=== PATIENT | male | born 1940 | race Caucasian/White ===

== ENCOUNTER 2022-12-02 22:49 | Emergency (ER) | payer OTHER, SELFPAY ==
--- NOTE | 2022-12-02 22:55 | DI.RAD.S_ITS ---
PROCEDURE: XR CHEST 1V INDICATIONS: chest pain TECHNIQUE: One view of the chest was acquired. COMPARISON: None. FINDINGS: Surgical changes and devices: There are postsurgical changes in the mediastinum with multiple median sternotomy wires. Lungs and pleura: There is a small left pleural effusion with left basilar opacities consistent with consolidation or atelectasis. Mediastinum: Mediastinal contours appear normal. Heart size is normal. Bones and chest wall: No suspicious bony lesions. Overlying soft tissues appear unremarkable. IMPRESSION: 1. Small left pleural effusion with left basilar atelectasis or consolidation. Dictated by: Carlos Connelly M.D. on 12/03/2022 at 0:01 Approved by: Carlos Connelly M.D. on 12/03/2022 at 0:01
[2022-12-02 22:59] VITALS: PULSE 61; RESP 12; O2SAT 99
[2022-12-02 23:00] VITALS: PULSE 63; RESP 20; O2SAT 100
[2022-12-02 23:02] VITALS: BP 138/62; PULSE 62; RESP 18; O2SAT 100
[2022-12-02 23:04] VITALS: BP 138/62; PULSE 62; RESP 16; TEMP 36.2; O2SAT 99
[2022-12-02 23:19] LABS: Basophils Absolute Auto 100 /uL (0-100); Basophils Percent Auto 0.7 % (0-2); Eosinophils Absolute Auto 100 /uL (0-450); Eosinophils Percent Auto 1.4 % (2-4); Hematocrit 28.9 % (41-53); Hemoglobin 9.5 g/dL (13.5-17.5); Lymphocytes Absolute Auto 900 /uL (1100-4500); Lymphocytes Percent Auto 11.7 % (25-40); Mean Corpuscular HGB Conc 32.8 % (30-36); Mean Corpuscular Hemoglobin 27.4 PG (26-34); Mean Corpuscular Volume 83.7 fL (80-100); Monocytes Absolute Auto 700 /uL (0-900); Monocytes Percent Auto 9.2 % (3-14); Neutrophils Absolute Auto 6100 /uL (1500-7000); Platelet Count 253 X10^3/uL (150-400); Red Blood Cell Count 3.45 X10^6/uL (4.5-5.9); White Blood Cell Count 7.9 X10^3/uL (4.5-11.0)
[2022-12-02 23:20] LABS: Add Manual Diff / Slide Review SLIDE REVIEW
[2022-12-02 23:21] LABS: INR 1.2 (0.9-1.3); Prothrombin Time 14.2 SECONDS (10.1-12.7)
[2022-12-02 23:23] LABS: D Dimer 1057 ng/ml (<500)
[2022-12-02 23:24] LABS: Alanine Aminotransferase 18 IU/L (<50); Albumin 3.8 g/dL (3.5-5.0); Albumin Globulin Ratio 1.1 (1.0-2.8); Alkaline Phosphatase 111 U/L (38-126); Aspartate Aminotransferase 21 IU/L (17-59); BUN Creatinine Ratio 20.7 (6-22); Bilirubin Total 0.3 mg/dL (0.2-1.3); Blood Urea Nitrogen 30 mg/dL (9-20); Calcium 9.5 mg/dL (8.4-10.2); Carbon Dioxide 27 mmol/L (22-32); Chloride 102 mmol/L (98-107); Creatine Kinase 62 U/L (55-170); Estimated Glomerular Filt Rate 48 mL/min (>60); Globulin 3.5 g/dL (1.7-4.1); Glucose 175 mg/dL (80-110); HEMOLYSIS < 15 (0-50); Lipase 94 U/L (23-300); Potassium 4.5 mmol/L (3.4-5.1); Sodium 137 mmol/L (137-145); Total Protein 7.3 g/dL (6.3-8.2)
[2022-12-02 23:30] VITALS: BP 148/67; PULSE 61; O2SAT 100
[2022-12-02 23:35] LABS: Troponin I < 0.012 ng/mL (0.01-0.034)
[2022-12-02 23:40] LABS: Procalcitonin 0.08 ng/mL (<0.5)
[2022-12-03] VITALS (9 sets, daily range): BP systolic 120–171; BP diastolic 57–78; PULSE 55–77; RESP 14–18; O2SAT 95–98
[2022-12-03 00:06] LABS: NT-proBNP (BNP-Adult 18+) 495 pg/mL (<450)
--- NOTE | 2022-12-03 01:15 | ED_ITS ---
HPI - Chest Pain General Chief Complaint: Chest Pain Stated Complaint: Chest Pain Time Seen by Provider: 12/02/22 22:55 Source: patient and EMS Mode of arrival: EMS Limitations: no limitations History of Present Illness HPI narrative: 82-year-old male former smoker with history coronary artery disease, AFib, hypertension hyperlipidemia on Eliquis presents with a chief complaint of feeling some palpitations and a bit winded with some left-sided chest pain that started yesterday. He states that his pain had been persistent and without obvious provocation or palliation. He denies any radiation of his pain. He denies associated symptoms such as dizziness, weakness or lightheadedness. He denies any shortness of breath or cough. He denies nausea, vomiting or diarrhea. He denies any change in medication or missed doses. He is had no fever or chills. He is not currently having any symptoms Related Data Previous Rx's Medication Instructions Recorded apixaban 5 mg tablet (Eliquis) 5 mg PO BID #60 tabs 12/03/22 Allergies Allergy/AdvReac Type Severity Reaction Status Date / Time No Known Drug Allergies Allergy Verified 12/06/22 17:04 Review of Systems Review of Systems Narrative: GENERAL: Denies chills, fatigue, malaise, fever, sweats. HEENT: Denies sinus pain, ear pain, sore throat, difficulty swallowing, dizziness. RESPIRATORY: Denies dyspnea, cough, wheezing, hemoptysis, sputum. CARDIOVASCULAR: See HPI GASTROINTESTINAL: Denies nausea, vomiting, abdominal pain, diarrhea, constipation, melena. : Denies dysuria, frequency, incontinence, hematuria, urinary retention. MUSCULOSKELETAL: denies weakness, joint pain, or bony pain SKIN: Denies rash, skin lesions, or other NEUROLOGIC: Denies weakness, headache, numbness, change in speech, confusion, seizures, incoordination. PSYCHIATRIC: No concerning psychosocial issues. 12 point review of systems is negative except for those stated above Patient History Social History Smoking Status: Former smoker Smoking Status: Former smoker alcohol intake frequency: a few times a month Substance Use Type: does not use Exam Narrative Exam Narrative: GENERAL: [82] year old patient appears stated age. Well-developed patient, in mild distress. HEAD: Atraumatic. Normocephalic. EYES: Pupils equal round and reactive. Extraocular motions intact. No scleral icterus. No injection or drainage. ENT: Nose without bleeding, purulent drainage. Throat without erythema, tonsillar hypertrophy or exudate. Airway patent. NECK: Trachea midline. Non tender CARDIOVASCULAR: Irregular rate and rhythm without murmurs, gallops, or rubs. RESPIRATORY: Clear to auscultation. Breath sounds equal bilaterally. No wheezes, rales, or rhonchi. GASTROINTESTINAL: Abdomen soft, non-tender, nondistended. EXTREMITIES: No edema or joint tenderness. BACK: Nontender without deformity or crepitance. No flank tenderness. NEURO: AOx3. SKIN: No rash or erythema of visible areas Initial Vital Signs Initial Vital Signs: Vital Signs Pulse Rate 61 12/02/22 22:59 Respiratory Rate 12 12/02/22 22:59 Pulse Oximetry 99 12/02/22 22:59 Scores HEART Score Heart Score history: Slightly Suspicious Heart Score EKG: Normal Heart Score Age: > or = 65 years old Heart Score risk factors: 1-2 risk factors Heart Score troponin: < or = to normal limit Heart Score Total: 3 Course Orders Ordered: Discontinued Medications Sodium Chloride (Normal Saline 0.9%) 1,000 mls @ 150 mls/hr IV CONT SHAGGY Last Admin: 12/03/22 03:08 Dose: Not Given Documented By: BS Vital Signs Vital signs: Vital Signs - 8 hr 12/02/22 23:04 Temperature 97.2 F L Pulse Rate 62 Respiratory Rate 16 Blood Pressure 138/62 Pulse Oximetry 99 Oxygen Delivery Method Room Air MDM - Chest Pain Lab Data 12/02/22 23:04 12/02/22 23:04 Labs: Lab Results 12/02/22 12/02/22 12/02/22 Range/Units 23:04 23:04 23:04 WBC 7.9 (4.5-11.0) X10^3/uL RBC 3.45 L (4.5-5.9) X10^6/uL Hgb 9.5 L (13.5-17.5) g/dL Hct 28.9 L (41-53) % MCV 83.7 (80-100) fL MCH 27.4 (26-34) PG MCHC 32.8 (30-36) % RDW 21.0 H (11.6-14.8) % Plt Count 253 (150-400) X10^3/uL Neut % (Auto) 77.0 H (50-75) % Lymph % (Auto) 11.7 L (25-40) % [place] % (Auto) 9.2 (3-14) % Eos % (Auto) 1.4 L (2-4) % Baso % (Auto) 0.7 (0-2) % Neut # (Auto) 6100 (9211-3750) /uL Lymph # (Auto) 900 L (3225-6979) /uL [place] # (Auto) 700 (0-900) /uL Eos # (Auto) 100 (0-450) /uL Baso # (Auto) 100 (0-100) /uL RBC Morphology See below Anisocytosis 3+ H Ovalocytes 1+ H PT 14.2 H (10.1-12.7) SECONDS INR 1.2 (0.9-1.3) D-Dimer 1057 H (<500) ng/ml Sodium 137 (137-145) mmol/L Potassium 4.5 (3.4-5.1) mmol/L Chloride 102 (98-107) mmol/L Carbon Dioxide 27 (22-32) mmol/L BUN 30 H (9-20) mg/dL Creatinine 1.45 H (0.66-1.25) mg/dL Estimated GFR 48 L (>60) mL/min BUN/Creatinine Ratio 20.7 (6-22) Glucose 175 H (80-110) mg/dL Calcium 9.5 (8.4-10.2) mg/dL Total Bilirubin 0.3 (0.2-1.3) mg/dL AST 21 (17-59) IU/L ALT 18 (<50) IU/L Alkaline Phosphatase 111 (38-126) U/L Total Creatine Kinase 62 (55-170) U/L CK-MB (CK-2) TNP CK-MB (CK-2) Rel Index TNP Troponin I < 0.012 (0.01-0.034) ng/mL NT-Pro-B Natriuret Pep (<450) pg/mL Total Protein 7.3 (6.3-8.2) g/dL Albumin 3.8 (3.5-5.0) g/dL Globulin 3.5 (1.7-4.1) g/dL Albumin/Globulin Ratio 1.1 (1.0-2.8) Lipase 94 (23-300) U/L Procalcitonin 0.08 (<0.5) ng/mL 12/02/22 12/03/22 Range/Units 23:04 00:57 WBC (4.5-11.0) X10^3/uL RBC (4.5-5.9) X10^6/uL Hgb (13.5-17.5) g/dL Hct (41-53) % MCV (80-100) fL MCH (26-34) PG MCHC (30-36) % RDW (11.6-14.8) % Plt Count (150-400) X10^3/uL Neut % (Auto) (50-75) % Lymph % (Auto) (25-40) % [place] % (Auto) (3-14) % Eos % (Auto) (2-4) % Baso % (Auto) (0-2) % Neut # (Auto) (9828-6469) /uL Lymph # (Auto) (3912-9108) /uL [place] # (Auto) (0-900) /uL Eos # (Auto) (0-450) /uL Baso # (Auto) (0-100) /uL RBC Morphology Anisocytosis Ovalocytes PT (10.1-12.7) SECONDS INR (0.9-1.3) D-Dimer (<500) ng/ml Sodium (137-145) mmol/L Potassium (3.4-5.1) mmol/L Chloride (98-107) mmol/L Carbon Dioxide (22-32) mmol/L BUN (9-20) mg/dL Creatinine (0.66-1.25) mg/dL Estimated GFR (>60) mL/min BUN/Creatinine Ratio (6-22) Glucose (80-110) mg/dL Calcium (8.4-10.2) mg/dL Total Bilirubin (0.2-1.3) mg/dL AST (17-59) IU/L ALT (<50) IU/L Alkaline Phosphatase (38-126) U/L Total Creatine Kinase 54 L (55-170) U/L CK-MB (CK-2) TNP CK-MB (CK-2) Rel Index TNP Troponin I < 0.012 (0.01-0.034) ng/mL NT-Pro-B Natriuret Pep 495 H (<450) pg/mL Total Protein (6.3-8.2) g/dL Albumin (3.5-5.0) g/dL Globulin (1.7-4.1) g/dL Albumin/Globulin Ratio (1.0-2.8) Lipase (23-300) U/L Procalcitonin (<0.5) ng/mL MDM Narrative Medical decision making narrative: CC: 82-year-old male with left-sided chest pain that started yesterday Complicating co-morbidities: Age, anticoagulation Data collected from: Patient Medical records reviewed: Prior notes reviewed in our EMR Differential considered, but not limited to: Cardiac ischemia, pulmonary embolism, pneumonia, musculoskeletal versus other Exam documented above, pertinent findings include: Lungs clear to auscultation bilaterally, no significant arrhythmia or tachycardia, no reproducible pain Lab Test results independently reviewed as above. Pertinent findings: Independently reviewed EKG as above Imaging studies independently reviewed: Atelectasis, no pulmonary embolism Scores Used: Heart MIPS Elements: No MIPS elements involved Discussion: Patient with reassuring history and physical exam, no occlusive findings or ischemic elements to EKG. No white count or true left shift. D- dimer is above age corrected cutoff for CT angiogram and pursuit of PE as diagnosis, CT angiogram ordered and thankfully absent of any pulmonary embolism. Troponin x2 is negative. Patient has no cough, no fever, no abnormal lung sounds on exam and procalcitonin is negative. For this reason the abnormal findings on imaging suggestive of atelectasis versus infiltrate or more likely atelectasis. Disposition: see below, along with detailed discharge instructions that have been reviewed with patient as well as indications for ED re-evaluation and additional outpatient follow up Discharge Plan Departure Patient Disposition: Home Clinical Impression: Atypical chest pain, Heart palpitations Instructions: DI for Atypical Chest Pain Activity Restrictions/Additional Instructions: *You have been diagnosed with [atypical chest pain. As we discussed your history, physical exam, labs and CT scan are very reassuring ] *What to do: *Please continue to take your regular medications as directed. [ ] New medication prescriptions sent to your pharmacy: [ ] [ ] New medication written as a paper prescription [ x] No new medications given *Please follow up with your primary care provider in 2-3 days, call for an appointment. Let them know you were seen in the Emergency Department and that we ask that you be seen in follow up. We will electronically transmit a record of today's note if your PCP is in our system *If you do not have a primary care provider please contact the [facility] Resource line at [phone]. They will ask some questions about your medical history and help get you set up with a doctor in the community. *Return to Emergency Department if you should have any new, worsening or concerning symptoms, such as [fever greater than 101 F, shaking chills, worsening pain, persistent vomiting or other bothersome symptoms] Prescriptions: New Eliquis 5 mg tablet 5 mg PO BID Qty: 60 0RF Stand Alone Forms: Patient Portal/API
[2022-12-03 01:17] LABS: Creatine Kinase 54 U/L (55-170)
[2022-12-03 01:30] LABS: Troponin I < 0.012 ng/mL (0.01-0.034)
[2022-12-03 01:37] LABS: Anisocytosis 3+; Ovalocytes 1+
--- NOTE | 2022-12-03 01:54 | DI.CT.S_ITS ---
PROCEDURE: CT ANGIO CHEST PE PROTOCOL INDICATIONS: Chest pain, critical Dimer, recent travel TECHNIQUE: After the administration of intravenous contrast, 2 mm thick sections acquired from the pulmonary apices to the posterior costophrenic angles. 3-dimensional maximum intensity projection (MIP) coronal and sagittal reformats were then acquired through the thorax. For radiation dose reduction, the following was used: automated exposure control, adjustment of mA and/or kV according to patient size. COMPARISON: [place], [place], PET NECK TO MID THIGH, 11/14/2022, 10:44. FINDINGS: Image quality: Good Pulmonary arteries: Pulmonary arteries are normal in size, and demonstrate no intraluminal filling defects to suggest central pulmonary embolism. Lungs and pleura: Nodular opacity at the left major fissure and left lower lobe, unchanged. Moderate-sized left pleural effusion, unchanged. No pneumothorax. Central and peripheral airways are patent. Mediastinum: Post median sternotomy and CABG. Heart size is normal, without pericardial effusion. No mediastinal or hilar adenopathy. Right inferior pericardiac calcified lymph node. Thoracic aorta is normal in caliber and enhancement. No conspicuous esophageal mass, with attention to the area of FDG avidity at the distal esophagus seen on recent PET/CT. No hiatal hernia. Bones and chest wall: No suspicious bony lesions. Remote left-sided rib fracture. Mild compression fracture at T7. Right thyroid nodule measuring approximately 1.4 cm. Calcification noted. No axillary or supraclavicular adenopathy. Gynecomastia. Abdomen: Visualized upper abdominal solid organs appear normal in the early arterial phase of enhancement. IMPRESSION: 1. No pulmonary embolism. 2. Moderate left pleural effusion, unchanged. 3. Nodular opacity in the left lung is unchanged. This could represent atelectasis or pneumonia. Less likely metastatic disease. This report is concordant with the overnight preliminary interpretation. Dictated by: Silvino Traylor M.D. on 12/03/2022 at 8:03 Approved by: Silvino Traylor M.D. on 12/03/2022 at 8:15
== END 2022-12-03 03:25 | disposition home or self-care (01) ==
PROVIDERS: Emergency Provider Emergency Medicine
DX: R07.89 Other chest pain (principal); R00.2 Palpitations; Z79.01 Long term (current) use of anticoagulants
CPT/HCPCS: 36415; 71045; 71275; 80053; 82550; 83690; 83880; 84145; 84484; 85025; 85379; 85610; 93005; 99283; 99284; Q9967

== ENCOUNTER 2022-12-06 16:39 | Emergency (ER) | payer OTHER, SELFPAY ==
[2022-12-06] VITALS (11 sets, daily range): BP systolic 142–195; BP diastolic 61–84; PULSE 64–70; RESP 16–23; TEMP 36.5; O2SAT 93–100; BMI 20.7
[2022-12-06 17:42] LABS: Bacteria Urine Many (>30); Culture Indicated Urine Cult Not Indicated; RBC Urine 1-5/HPF (0-5/HPF); Squamous Epithelial Cell Urine None Seen (0-5/HPF); WBC Urine 10-30/HPF (0-5/HPF)
--- NOTE | 2022-12-06 17:54 | PC.NURSE ---
Pt reports itching like crazy at the head of my penis and frequency with voiding. Pt also reports intermittent upper abdominal pain that radiates up to his chest. Pt reports he was recently seen here for his abdominal pain.
--- NOTE | 2022-12-06 17:58 | PC.NURSE ---
Provider aware of pt upper abdominal pain that radiates to chest. New order for EKG.
--- NOTE | 2022-12-06 18:09 | ED.MALEGU ---
HPI - Male Genitourinary General Chief complaint: Urogenital-Male Stated complaint: thinks UTI or yeast infection Time Seen by Provider: 12/06/22 17:57 Source: patient Mode of arrival: Ambulatory History of Present Illness HPI Narrative: 82-year-old male former smoker with history coronary artery disease, AFib, hypertension hyperlipidemia on Eliquis Presents with a chief complaint of dysuria, frequency and urgency for the past few days. He states that he has cloudy foul-smelling urine. He denies any abdominal pain, flank pain or systemic complaints such as fever, chills nor nausea or vomiting. He has no chest pain, shortness of breath or cough. Related Data Previous Rx's Medication Instructions Recorded apixaban 5 mg tablet (Eliquis) 5 mg PO BID #60 tabs 12/03/22 amoxicillin 875 mg-potassium 1 tab PO Q12H #20 tabs 12/06/22 clavulanate 125 mg tablet Allergies Allergy/AdvReac Type Severity Reaction Status Date / Time No Known Drug Allergies Allergy Verified 12/06/22 17:04 Patient History Social History Smoking Status: Former smoker Smoking Status: Former smoker alcohol intake frequency: a few times a month Substance Use Type: does not use Exam Narrative Exam Narrative: GEN: AOx3 and in mild distress EYES: Pupils are equal, round, and reactive to light and accommodation. Extraoccular muscles are intact bilaterally. There is no subconjunctival hemorrhage or exudate. CHEST: Lungs are clear to auscultation bilaterally and free of wheezes, rales, or rhonchi. Heart rate is regular rhythm, there are no murmurs, clicks, rubs, or gallops. There is no chest wall tenderness. ABD: Abdomen is soft and nontender. There is no guarding or rebound. Bowel sounds are normal in all 4 quadrants. There is no mass or organomegaly. EXT: Full painless ROM of all extremities with no loss of sensation or strength. SKIN: Warm, pink, and dry. No erythema or rash Initial Vital Signs Initial Vital Signs: Vital Signs Temperature 97.7 F 12/06/22 17:00 Pulse Rate 66 12/06/22 17:00 Respiratory Rate 16 12/06/22 17:00 Blood Pressure 142/77 H 12/06/22 17:00 Pulse Oximetry 100 12/06/22 17:00 Oxygen Delivery Method Room Air 12/06/22 17:00 Course Orders Ordered: ED Orders 12/06/22 17:05 Urine Culture Stat Urine Microscopic Stat 12/06/22 17:57 EKG-12 Lead Stat 12/06/22 18:02 Urine Microscopic Stat Discontinued Medications Amoxicillin/Clavulanate Potassium (Amoxicillin/Clav 875/125 Mg) 1 tab PO NOW ONE Stop: 12/06/22 18:30 Vital Signs Vital signs: Vital Signs - 8 hr 12/06/22 17:00 Temperature 97.7 F Pulse Rate 66 Respiratory Rate 16 Blood Pressure 142/77 H Pulse Oximetry 100 Oxygen Delivery Method Room Air MDM - Male Genitourinary Lab Data Labs: Lab Results 12/06/22 Range/Units 17:05 Urine RBC 1-5/hpf (0-5/HPF) Urine WBC 10-30/hpf H (0-5/HPF) Ur Squamous Epith Cells None seen (0-5/HPF) Urine Bacteria Many (>30) H (None) Ur Culture Indicated? Cult not indicated Urine Dip Bedside Urine Glucose 1000 mg/dl Bedside Urine Bilirubin - Negative Bedside Urine Ketone - Negative Urine Specific [place] 1.025 Bedside Urine Occult Blood +++ Bedside Urine pH 6.0 Bedside Urine Protein + 30 Bedside Urine Urobilinogen +/- 1mg Bedside Urine Nitrite - Negative Bedside Urine Leukocytes +/- 15 Esterase [facility] Narrative Medical decision making narrative: [82] year old patient presents with urinary complaints including dysuria, frequency, urgency and cloudy foul-smelling urine. Multiple etiologies for patient's symptoms considered including, but not limited to: [UTI, pyelonephritis says other] Prior Charts reviewed in our EMR Primary Historian: patient Labs reviewed and interpreted by myself: Urine consistent with UTI Patient with history and physical consisting classic suggestion of UTI, urine supports this diagnosis. Of note he has no systemic complaints such as dizziness, weakness or lightheadedness. He has no fever, chills nor nausea or vomiting. He had been seen a few days ago having had some palpitations and his evaluation including imaging which suggested atelectasis versus a possible pulmonary infiltrate, however the patient continues to state that he has no cough, shortness of breath, fever or chills. Findings and discharge diagnosis discussed with patient/family followed by verbalization of understanding Return precautions discussed with patient/family whom verbalize understanding of diagnosis and plan Discharge Plan Departure Patient Disposition: Home Clinical Impression: Urinary tract infection Instructions: DI for Urinary Tract Infection (UTI) Activity Restrictions/Additional Instructions: *You have been diagnosed with [acute urinary tract infection] *What to do: *Please continue to take your regular medications as directed. [x ] New medication prescriptions sent to your pharmacy: [ [facility] in [place]] [ ] New medication written as a paper prescription [ ] No new medications given *Please follow up with your primary care provider in 2-3 days, call for an appointment. Let them know you were seen in the Emergency Department and that we ask that you be seen in follow up. We will electronically transmit a record of today's note if your PCP is in our system *If you do not have a primary care provider please contact the [facility] Resource line at [phone]. They will ask some questions about your medical history and help get you set up with a doctor in the community. *Return to Emergency Department if you should have any new, worsening or concerning symptoms, such as [fever greater than 101 F, shaking chills, worsening pain, persistent vomiting or other bothersome symptoms] Prescriptions: New amoxicillin-pot clavulanate 875-125 mg tablet 1 tab PO Q12H Qty: 20 0RF No Action Eliquis 5 mg tablet 5 mg PO BID Qty: 60 0RF Stand Alone Forms: Patient Portal/API
[2022-12-06] MEDS: AMOXICILLIN/CLAV 875/125 MG 1 TAB PO (18:48)
[2022-12-06] MEDS: CLOTRIMAZOLE 1% CRM 30 GM 1 APPLIC TOP (19:00)
== END 2022-12-06 19:28 | disposition home or self-care (01) ==
PROVIDERS: Emergency Medicine; Emergency Provider Emergency Medicine
DX: N39.0 Urinary tract infection, site not specified (principal); R07.9 Chest pain, unspecified; Z79.01 Long term (current) use of anticoagulants
CPT/HCPCS: 81003; 81015; 87077; 87086; 87186; 93005; 99283